=== PATIENT | female | born 1985 | race Caucasian/White ===

== ENCOUNTER 2016-07-07 13:40 | Emergency (ER) | payer OTHER ==
[~2016-07-07] VITALS: Ht 162.6 cm; Wt 67.7 kg
[~2016-07-07 13:40] MED LIST: CALC500C70 PO; MTR600X PO
[2016-07-07 13:52] VITALS: BP 112/74; PULSE 111; TEMP 37.6; O2SAT 97; Ht 162.6 cm; Wt 67.7 kg
[2016-07-07] MEDS ORDERED: IBUPROFEN 600 MG TAB PO STA (14:04)
--- NOTE | 2016-07-07 14:10 | EMERGENCY ROOM VISIT NOTE ---
ED Visit Note First contact with patient: 13:58 CHIEF COMPLAINT: Left ear pain HISTORY OF PRESENT ILLNESS: This 31-year-old female patient has had an left earache since yesterday the pain is moderate, and is gradually increasing. Has noticed swelling and tenderness around the ear canal and pain below the ear on the upper neck. The patient denies any visual drainage from the ear. The patient denies any other respiratory symptoms of sore throat, cough, fever, runny nose REVIEW OF SYSTEMS: 6 system review was performed and was negative unless stated otherwise in history of present illness. PMH: The patient is healthy; there is no significant medical or surgical history. SOCIAL HISTORY: Patient lives with her family. She is currently not breast- feeding. PHYSICAL EXAM: Vital Signs: Were reviewed Reviewed Nurse's notes. GENERAL: 31- year-old female appears uncomfortable secondary to ear pain MENTAL Status: Alert and oriented 3. EARS: Right canal clear. TMs good light reflex. Left tragus and auricle tender to palpation. Canal with erythema and edema. Able to visualize partial TMs clear. There is fluid within the canal. NECK: Supple , nontender to palpation. SKIN: Normal. PHARYNX: No erythema or edema noted. Airway is adequate. EMERGENCY COURSE: The patient was evaluated. The patient was given Motrin 600 mg by mouth for pain. 4 drops of Cortisporin otic were placed into the left ear. The patient was given the remainder of the bottle to use at home as directed. DIAGNOSIS: Acute left otitis externa DISCHARGE INSTRUCTIONS & TREATMENT: Cortisporin otic drops, 4 in the ear canal 4 times a day for 5 - 7 days until the pain and swelling are gone. Ibuprofen 600 mg every 6 hours with food for pain. Follow-up with [facility] next week for reevaluation. Current/Historical Medications Scheduled Calcium/Vitamin D (Os-Kenny 500 Plus D), 1 TAB PO DAILY Scheduled PRN Ibuprofen (Ibuprofen), 600 MG PO Q4H PRN for PAIN, QUINN, CRAMPING OR FEVER Allergies Coded Allergies: No Known Allergies (Unverified , 02/21/16) Vital Signs Date Time Temp Pulse Resp B/P Pulse Ox O2 Delivery O2 Flow Rate FiO2 07/07/16 13:52 37.6 111 18 112/74 97 Room Air Departure Information Referrals No Doctor, Assigned (PCP) Patient Instructions [facility]
[2016-07-07] MEDS ORDERED: NEOMYCIN/POLYMYX/HYDROCORT OT SOLN 10 ML BTL OT ONE (14:15)
== END 2016-07-07 14:21 | disposition home or self-care (01) ==
LOC: C.EDB 13:41 → C.EDD 14:21
DX: H60.502 Unspecified acute noninfective otitis externa, left ear (principal)